=== PATIENT | female | born 1990 | race Caucasian/White ===

== ENCOUNTER 2019-08-26 16:10 | Outpatient (CLI) | payer MEDICAID, SELFPAY ==
[2019-08-26 17:42] LABS: Iron 24 ug/dL (37-145)
[2019-08-26 18:05] LABS: Alanine Aminotransferase 17 U/L (0-33); Albumin Level 4.5 g/dL (3.5-5.2); Alkaline Phosphatase 83 IU/L (35-105); Aspartate Amino Transferase 20 U/L (0-32); Blood Urea Nitrogen 8 mg/dL (6-20); Calcium 9.9 mg/dL (8.5-10.5); Carbon Dioxide 26 mmol/L (22-29); Chloride 102 mmol/L (98-107); Ferritin 5 ng/mL (15-150); Globulin 3.3 g/dL (1.3-4.6); Glomerular Filtration Rate 98.9 mL/min (90-130); Glucose 81 mg/dL (65-115); Iron 22 ug/dL (37-145); Magnesium 2.1 mg/dL (1.7-2.3); Osmolality Calculated 283 mOsm/kg (285-295); Percent Saturation 5.5 % (20-50); Phosphorus 4.2 mg/dL (2.5-4.5); Sodium 139 mmol/L (136-145); Total Bilirubin 0.2 mg/dL (0.15-1.2); Total Iron Binding Capacity 399 mcg/dl; Total Protein 7.8 g/dL (6.6-8.7); Unsaturated Iron Binding 377 ug/dL (112-347); Vitamin B12 242 pg/mL (232-1245)
[2019-08-26 20:23] LABS: Estmated Average Glucose 126
[2019-08-26 21:08] LABS: Basophils % 0.6 %; Eosinophils # 0.1 10^3/uL (0.0-0.8); Hematocrit 36.7 % (37.0-47.0); Hemoglobin 10.7 g/dL (11.5-15.3); Lymphocytes # 1.9 10^3/uL (0.8-4.8); Lymphocytes % 31.2 %; Mean Corpuscular HGB Conc 29.2 g/dL (30.0-36.0); Mean Corpuscular Hemoglobin 22.9 pg (28.0-34.0); Mean Corpuscular Volume 78.4 fL (81-99); Mean Platelet Volume 12.5 fL (7.4-10.4); Monocytes # 0.5 10^3/uL (0.2-0.9); Monocytes % 7.6 %; Neutrophils # 3.7 10^3/uL (1.8-7.7); Neutrophils % 59.4 %; Nucleated Red Blood Cells % 0 %; Platelet Count 303 10^3/cmm (130-400); Red Blood Count 4.68 10^6/uL (4.1-5.3); Red Cell Distribution Width 13.5 % (12.1-15.1); White Blood Count 6.2 10^3/uL (4.0-10.0)
[2019-08-26 22:19] LABS: Folate Level 12.6 ng/mL (4.8-37.3)
[2019-08-27 00:36] LABS: Calcium 9.3 mg/dL (8.5-10.5); Parathyroid Hormone 112.5 pg/mL (15-65)
== END 2019-08-26 16:11 | disposition home or self-care (01) ==
LOC: LAB 16:15
PROVIDERS: PCP Internal Medicine; Visit Provider Surgery
DX: E66.9 Obesity, unspecified (principal)
CPT/HCPCS: 80053; 82310; 82607; 82728; 82746; 83036; 83540; 83550; 83735; 83970; 84100; 84443; 85025

== ENCOUNTER → 2019-08-27 12:10 | Outpatient (BNVA) | payer MEDICAID, SELFPAY | PROVIDERS: PCP Internal Medicine; Visit Provider Obstetrics & Gynecology | DX: N92.0 Excessive and frequent menstruation with regular cycle (principal); R35.0 Frequency of micturition | CPT/HCPCS: 80053; 81000; 85027 ==

== ENCOUNTER 2019-09-07 10:27 | Outpatient (CLI) | payer MEDICAID, SELFPAY ==
--- NOTE | 2019-09-07 11:01 | FL_ITS ---
WS: [id number] Upper GI evaluation. HISTORY: Reflux and bloating. Prior history of gastric bypass surgery. Fluoroscopy time: 3.5 minutes. COMPARISON: No similar studies. Patient swallowed the barium mixtures without difficulty. No hernia or reflux was demonstrated during this examination. There are surgical sutures from the patient's gastric bypass surgery. Small gastri c pouch is evident. The blind-ending jejunal stump is dilated but no extravasation of contrast. Bariu m enters the Lidia limb which is normal caliber. Several small bowel loops proximally were dilated but there is normal peristalsis and no obstruction was evident. FL/FL upper GI w air* [id number] IMPRESSION: 1. Prior gastric bypass surgery. 2. No evidence for gastroesophageal reflux. 3. Proximal small bowel loops distal to the Lidia limb are mildly dilated but t here is no evidence for an obstruction on this examination.
== END 2019-09-07 10:28 | disposition home or self-care (01) ==
LOC: RAD 10:31
PROVIDERS: PCP Internal Medicine; Visit Provider Surgery
DX: K21.9 Gastro-esophageal reflux disease without esophagitis (principal); Z98.84 Bariatric surgery status
CPT/HCPCS: 74246

== ENCOUNTER → 2019-09-14 09:41 | Outpatient (BNVA) | payer MEDICAID, SELFPAY | PROVIDERS: PCP Internal Medicine; Visit Provider Obstetrics & Gynecology | DX: N92.0 Excessive and frequent menstruation with regular cycle (principal) | CPT/HCPCS: 76830 ==

== ENCOUNTER 2019-09-21 13:04 | Outpatient (CLI) | payer MEDICAID, SELFPAY ==
--- NOTE | 2019-09-21 13:30 | US_ITS ---
WS: [id number] THYROID ULTRASOUND HISTORY: HYPERPARATHYROIDISM COMPARISON: None available. Right lobe: 4.6 cm x 1.7 cm x 1.6 cm. Volume: 6.3 cm3. Normal size and echotexture. No significant are dominant nodules are present. Left lobe: 4.8 cm x 1.9 cm x 1.2 cm. Volume: 6.1 cm3. Normal size and echotexture. No significant or dominant nodules are present. Isthmus: 0.3 cm. No parathyroids identified. US/US soft tissue head neck [id number] IMPRESSION: Normal thyroid ultrasound.
== END 2019-09-21 13:05 | disposition home or self-care (01) ==
PROVIDERS: PCP Internal Medicine; Visit Provider Surgery
DX: E21.3 Hyperparathyroidism, unspecified (principal)
CPT/HCPCS: 76536

== ENCOUNTER → 2019-10-07 09:55 | Outpatient (BNVA) | payer MEDICAID, SELFPAY | PROVIDERS: PCP Internal Medicine; Visit Provider Obstetrics & Gynecology | DX: Z12.4 Encounter for screening for malignant neoplasm of cervix (principal) | CPT/HCPCS: 88175 ==

== ENCOUNTER 2019-10-13 07:24 | Day surgery (SDC) | payer MEDICAID, SELFPAY ==
[2019-10-11 11:08] VITALS: BMI 36.6
[2019-10-13 07:42] LABS: OR HCG Qualitative Urine Negative (Negative)
[2019-10-13 07:44] VITALS: BP 131/85; PULSE 70; RESP 16; TEMP 36.9; O2SAT 98
[2019-10-13] MEDS: sodium chloride 0.9% 1,000 ML 30 ML IV (07:56)
--- NOTE | 2019-10-13 08:53 | P.ANESASSM_ITS ---
Pre-Anesthetic Assessment Pre-Anesthetic Assessment: Height/Weight: Height 1.65 m Weight 99.79 kg Temp Pulse Resp BP Pulse Ox 98.5 F 70 16 131/85 98 10/13/19 07:44 10/13/19 07:44 10/13/19 07:44 10/13/19 07:44 10/13/19 07:44 Preop Diagnosis: Anemia Proposed Procedure: Operation Date: 10/13/19 09:00 Proposed Procedures p EGD 23903 [id number] D50.9 R10.9(Not Applicable) - Beto Meier MD s Colonoscopy(Not Applicable) - Beto Meier MD Was Beta Valerie taken within 24 hours: N/A Last intake: Intake Last Liquid Date 10/12/19 Last Liquid Time 20:30 Last Solid Date 10/11/19 Last Solid Time 18:00 Social: Social History: No alcohol and No tobacco Exam: Pre-Anes Outpt Exam: alert, oriented x 3, clear to auscultation bilaterally and regular rate & rhythm Airway: Submandibular: WNL Cervical ROM: WNL MP: 2 History/ROS: No significant history except as noted Pulmonary: Pulmonary: None reported CV/HEM: CV/HEM: None reported : : None reported Hepatic: Hepatic: None reported GI: GI: None reported Metabolic: Metabolic: Thyroid Musc/skel: Musc/skel: None reported Neuropsych: Neuropsych: None reported Anesthetic Plan: ASA status: 2 Anesthesia: MAC Meds/Allergies Current Medications: Current Medications Generic Name Dose Route Start Last Admin Trade Name Freq PRN Reason Stop Dose Admin Sodium Chloride 1,000 mls @ 30 ml s/hr 10/13/19 07:45 10/13/19 07:56 Sodium Chloride 0.9% IV 10/14/19 07:44 30 mls/hr .Q24H RUY Administration PFSH Anesthesia PFSH: Medical History Anemia Depression History of herpes simplex infection 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 Patient has lost >100 pounds. In 2014, found to have iron deficiency, and multiple vitamin and other minimal deficiencies. Hypothyroidism (~2009) Diag in 2009. On replacement. Obesity Surgical History History of appendectomy (~2014) Open. Performed at [facility] in [place], [place] History of section (06/16/09) Dx: Breech. Performed by Dr. Jenkins at [facility] [place] [place] in [place], [place] History of section (10/10/14) Repeat. Performed by Dr. Hayes at [facility] [place] [place] in [place], [place] History of section (12/16/17) Repeat with tubal ligation. Performed in [place], [place] History of esophagogastroduodenoscopy (EGD) History of laparoscopic cholecystectomy (~2012) Laparoscopic procedure performed in [place], [place] History of Lidia-en-Y gastric bypass (06/01/12) Lidia-en-Y type gastric bypass performed laparoscopically. Performed in [facility] History of tubal ligation (12/16/17) Performed at time of . Patient reports having Filshie clips placed. Performed in [place], [place] Family History Mother Hypercholesteremia Unknown Diabetes in general maternal and paternal side Heart disease maternal side Family/Other Thyroid disease maternal aunt Father Thyroid disease Social History (Updated 10/09/19 @ 19:35 by Maykel Hayes MD) Smoking and tobacco status: former smoker Quit status (tobacco): has quit using tobacco Former quit date comment: Smoked as a teenager. Alcohol intake: never Ludmila/Pentecostal: Hoahaoism Data Anesthesia Other Labs: Laboratory Results - last 48 hr 10/13/19 07:40 Urine HCG, Qual Negative Cardiac Studies: No Data to Display
--- NOTE | 2019-10-13 09:01 | W.PM.OPSUD ---
Surgery/Procedure H&P Update DATE OF PROCEDURE: October 13, 2019 DATE H&P PERFORMED: 09/30/19 H&P UPDATE INFORMATION: I have reviewed H&P completed within last 30 days, I have examined patient prior to procedure and No changes to prior documentation PREOP DIAGNOSIS: Anemia PRIMARY INDICATION FOR PROCEDURE: The same PLANNED PROCEDURE: Operation Date: 10/13/19 09:00 Proposed Procedures p EGD [id number] D50.9 R10.9(Not Applicable) - Beto Meier MD s Colonoscopy(Not Applicable) - Beto Meier MD
[2019-10-13 09:25] VITALS: BP 105/65; PULSE 68; RESP 16; TEMP 36.3; O2SAT 98
[2019-10-13 09:39] VITALS: BP 109/63; PULSE 55; RESP 18; O2SAT 99
--- NOTE | 2019-10-13 09:48 | ANE.PACU2 ---
Inpatient post-anesthesia follow up: Airway intact: Yes Vital signs: Temperature 97.4 F Pulse Rate 55 Respiratory Rate 18 Blood Pressure 109/63 Pulse Oximetry 99 Oxygen Delivery Me thod Room Air Oxygen Flow Rate 3.0 Fraction of Inspir ed Oxygen Hydration adequate: Yes Nausea and vomiting: No Mental status: Baseline
== END 2019-10-13 09:55 | disposition home or self-care (01) ==
PROVIDERS: Anesthesiology; PCP Internal Medicine; Visit Provider Surgery
PROC: 0DJ08ZZ Inspection of Upper Intestinal Tract, Via Natural or Artificial Opening Endoscopic (ICD-10-PCS; CPT 43235; principal; 2019-10-13 09:00)
PROC: 0DJD8ZZ Inspection of Lower Intestinal Tract, Via Natural or Artificial Opening Endoscopic (ICD-10-PCS; CPT 45378; 2019-10-13 09:00)
DX: D50.9 Iron deficiency anemia, unspecified (principal); K22.9 Disease of esophagus, unspecified; Z87.891 Personal history of nicotine dependence
CPT/HCPCS: 12345; 43235; 45378; 81025; 84703; 87624; J2704; J3010; J7030

== ENCOUNTER → 2020-01-11 11:37 | Outpatient (BNVA) | payer MEDICAID, SELFPAY | PROVIDERS: PCP Internal Medicine; Visit Provider Dermatology | DX: D48.9 Neoplasm of uncertain behavior, unspecified (principal) | CPT/HCPCS: 88304 ==

== ENCOUNTER 2020-08-01 13:00 | Outpatient (CLI) | payer MEDICAID, SELFPAY | END 2020-08-01 13:01 | disposition home or self-care (01) | LOC: SLEEP 08-02 09:51 | PROVIDERS: PCP Internal Medicine; Visit Provider Internal Medicine | DX: G47.10 Hypersomnia, unspecified (principal) | CPT/HCPCS: G0399 ==

== ENCOUNTER 2020-09-01 11:46 | Emergency (ER) | payer MEDICAID, SELFPAY ==
[2020-09-01 11:50] VITALS: BP 153/117; PULSE 128; RESP 19; TEMP 36.6; O2SAT 100; BMI 36.6
--- NOTE | 2020-09-01 12:06 | W.ED.ALLEREA ---
HPI - Allergic Reaction General: Chief complaint: Allergic Reaction Stated complaint: rash Time Seen by Provider: 09/01/20 11:47 History of Present Illness: HPI narrative: 29-year-old female presents to the emergency room with complaint of an insect bite. She was bitten recently has some swelling and inflammation overlying the right trapezius muscle with some erythema surrounding it is become tender. She is not had any fever sweats or chills. Onset (ago): day(s) Exposure: insect bite Associated symptoms: Deny abdominal pain, difficulty breathing, dysphagia, dizziness, facial swelling, hoarseness, itching, lip swelling, nausea, rash, tongue swelling or vomiting Severity: mild Previous Allergic Reaction History: none Review of Systems Const: Denies: fever(s), chills, body aches, change in appetite, fatigue or malaise ENMT: Denies: hoarseness Card: Denies: chest pain, edema, dyspnea on exertion or orthopnea Resp: Denies: dyspnea, productive cough or non-productive cough GI: Denies: abdominal pain, nausea, vomiting or dysphagia Skin/Breast: Reports: rash Neuro: Denies: dizziness All/Imm: Denies: tongue swelling or facial swelling PFSH ED PFSH: Medical History (Updated 09/01/20 @ 12:08 by Eder Bauman DO) Anemia Depression History of herpes simplex infection 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 Patient has lost >100 pounds. In 2014, found to have iron deficiency, and multiple vitamin and other minimal deficiencies. Hypothyroidism (~2009) Diag in 2009. On replacement. Obesity Surgical History History of appendectomy (~2014) Open. Performed at [facility] in [place], [place] History of section (06/16/09) Dx: Breech. Performed by Dr. Jenkins at [facility] [place] in [place], [place] History of section (10/10/14) Repeat. Performed by Dr. Hayes at [facility] [place] in [place], [place] History of section (12/16/17) Repeat with tubal ligation. Performed in [facility] [place] History of esophagogastroduodenoscopy (EGD) History of laparoscopic cholecystectomy (~2012) Laparoscopic procedure performed in [place], [place] History of Lidia-en-Y gastric bypass (06/01/12) Lidia-en-Y type gastric bypass performed laparoscopically. Performed in [facility] History of tubal ligation (12/16/17) Performed at time of . Patient reports having Filshie clips placed. Performed in [place], [place] Family History Mother Hypercholesteremia Unknown Diabetes in general maternal and paternal side Heart disease maternal side Family/Other Thyroid disease maternal aunt Father Thyroid disease Social History Smoking and tobacco status: former smoker Quit status (tobacco): has quit using tobacco Former quit date comment: Smoked as a teenager. Alcohol intake: never Ludmila/Advent: Pentecostal Physical Exam Const: COMMON NORMALS: no acute distress GENERAL APPEARANCE: cooperative and comfortable ORIENTATION/CONSCIOUSNESS: Yes awake, Yes oriented to person, Yes oriented to place and Yes oriented to time HENMT: COMMON NORMALS: normocephalic, atraumatic, hearing grossly normal bilaterally and external ears normal HEAD & SCALP: normocephalic and atraumatic EXTERNAL EAR: Yes external ears normal Neck/C-Spine: COMMON NORMALS: no JVD Resp: COMMON NORMALS: normal respiratory effort, No retractions, No use of accessory muscles and clear to auscultation bilaterally AUSCULTATION: clear to auscultation bilaterally Cardio: COMMON NORMALS: no JVD, regular rate, regular rhythm and No murmurs present (Cardio) RATE: regular rate RHYTHM: regular rhythm GI: COMMON NORMALS: Soft to palpation and No hepatosplenomegaly present AUSCULTATION: Yes normoactive bowel sounds PALPATION: Yes Soft to palpation, No Tenderness to palpation present (GI), No Guarding due to palpation present (GI) and Yes No hepatosplenomegaly present Neuro: SENSORIUM/ORIENTATION: Yes oriented to person, Yes oriented to place and Yes oriented to time Skin: NARRATIVE SKIN EXAM: Mild localized erythema. There is no evidence of abscess there is a small area at the center that is whitish with palpation was unable really to express any fluid from it. There is no palpable abscess I believe that in anesthetizing locally would not really help her cause her undue discomfort. Course Vital Signs: Vital signs: Vital Signs Temperature 97.8 F 09/01/20 11:50 Pulse Rate 128 H 09/01/20 11:50 Respiratory Rate 19 H 09/01/20 11:50 Blood Pressure 153/117 09/01/20 11:50 Pulse Oximetry 100 09/01/20 11:50 MDM - Allergic Reaction MDM Narrative: Medical decision making narrative: Discharge home on Bactrim and diclofenac can use topical Benadryl over the area for localized relief follow-up with your primary care doctor in the next few days. If worsens return Discharge Plan Discharge Patient Disposition: Home Clinical Impression: Insect bite, Cellulitis Condition: Stable Prescriptions: New Bactrim DS 800-160 mg tablet 1 tab PO BID Qty: 14 RF: 0 diclofenac sodium 75 mg tablet,delayed release (DR/EC) 75 mg PO Q12H PRN (Reason: pain) Qty: 20 RF: 0 No Action mecobalamin (vitamin B12) 10,000 mcg recon soln 10,000 mcg IM .monthly RF: 0 cholecalciferol (vitamin D3) 1,250 mcg (50,000 unit) capsule 50,000 unit PO .weekly RF: 0 ferrous sulfate [Feosol] 325 mg (65 mg iron) tablet 325 mg PO DAILY RF: 0 citalopram 20 mg tablet 20 mg PO DAILY RF: 0 Discharge Orders: Discharge ED (Routine); Ordered 09/01/20 Ordered By: Eder Bauman Referrals: Lizzy Manning MD [Primary Care Provider] - Discharge Diet: Usual diet Discharge Activity: Increase activity as tolerated Patient Instructions: Opioid Safety Activity Restrictions/Additional Instructions: Follow-up with your primary care doctor early next week. Coding Level of Care Code ED [employer] Sales Consultant for Celestina Garg
== END 2020-09-01 12:16 | disposition home or self-care (01) ==
LOC: ER 12:14
PROVIDERS: Emergency Provider Family Medicine; PCP Internal Medicine
DX: S20.461A Insect bite (nonvenomous) of right back wall of thorax, initial encounter (principal); L03.312 Cellulitis of back [any part except buttock and flank]; W57.XXXA Bitten or stung by nonvenomous insect and other nonvenomous arthropods, initial encounter; Z87.891 Personal history of nicotine dependence
CPT/HCPCS: 99282

== ENCOUNTER 2021-10-09 09:12 | Outpatient (CLI) | payer MEDICAID, SELFPAY ==
--- NOTE | 2021-10-09 09:19 | NM_ITS ---
WS: [id number] NUCLEAR MEDICINE PARATHYROID SCINTIGRAPHY INDICATION: Hypercalcemia TECHNIQUE: Parathyroid scintigraphy with 18.2 mCi technetium 99m sestamibi. Early and late anterior p lanar imaging and oblique imaging with and without suprasternal notch and chin markers. FINDINGS: Comparison ultrasound thyroid September 21, 2019. Homogeneous bilateral thyroid uptake. Normal s ubmandibular and parotid activity. Normal thyroid washout on the delayed imaging. No retained areas o f activity. No evidence of parathyroid adenoma. NM/NM parathyroid [id number] IMPRESSION: No evidence of parathyroid adenoma
== END 2021-10-09 09:13 | disposition home or self-care (01) ==
LOC: RAD 09:13
PROVIDERS: PCP Internal Medicine; Visit Provider Internal Medicine
DX: E21.3 Hyperparathyroidism, unspecified (principal)
CPT/HCPCS: 78070; A9500

== ENCOUNTER → 2022-03-01 09:00 | Outpatient (BNVA) | payer MEDICAID, SELFPAY | PROVIDERS: PCP Internal Medicine; Visit Provider Nurse Practitioner Women's Health | DX: R10.2 Pelvic and perineal pain (principal); N92.0 Excessive and frequent menstruation with regular cycle; R82.90 Unspecified abnormal findings in urine; Z34.90 Encounter for supervision of normal pregnancy, unspecified, unspecified trimester | CPT/HCPCS: 84315; 84443; 85025; 87086; 87481; 87491; 87512; 87591; 87661; 87799 ==

== ENCOUNTER → 2022-04-02 14:36 | Outpatient (BNVA) | payer MEDICAID, SELFPAY | PROVIDERS: PCP Internal Medicine; Visit Provider Nurse Practitioner Women's Health | DX: N93.9 Abnormal uterine and vaginal bleeding, unspecified (principal) | CPT/HCPCS: 76830 ==

== ENCOUNTER → 2022-04-16 13:19 | Outpatient (BNVA) | payer MEDICAID, SELFPAY | PROVIDERS: PCP Internal Medicine; Visit Provider Nurse Practitioner Family | DX: E53.8 Deficiency of other specified B group vitamins (principal); Z98.84 Bariatric surgery status; D64.9 Anemia, unspecified; E66.01 Morbid (severe) obesity due to excess calories; E55.9 Vitamin D deficiency, unspecified | CPT/HCPCS: 80053; 80061; 82306; 82607; 83540; 83550 ==

== ENCOUNTER → 2022-08-20 10:08 | Outpatient (BNVA) | payer MEDICAID, SELFPAY | PROVIDERS: PCP Internal Medicine; Visit Provider Nurse Practitioner Family | DX: E66.9 Obesity, unspecified (principal); E03.9 Hypothyroidism, unspecified; F32.9 Major depressive disorder, single episode, unspecified; D64.9 Anemia, unspecified; Z98.84 Bariatric surgery status | CPT/HCPCS: 80053; 80061; 82310; 83970; 84443 ==

== ENCOUNTER 2023-01-23 13:37 | Outpatient (CLI) | payer MEDICAID, SELFPAY ==
--- NOTE | 2023-01-23 14:02 | XR_ITS ---
WS: [id number] Exam: XR hip RT 2-3V wo/w pel* [id number] Date/Time of Exam: 01/23/2023 2:02 PM Reason For Exam: Right sciatica Findings: No fractures or bone anomalies are noted. No unusual soft tissue masses or calcifications are seen. The bony elements of the hip are in adequate alignment. IMPRESSION: Negative RIGHT hip. Tonnis classification: 0
--- NOTE | 2023-01-23 14:02 | XR_ITS ---
WS: [id number] Exam: XR lumbar spine 2-3V* [id number] Date/Time of Exam: 01/23/2023 2:02 PM Reason For Exam: Right sciatica No fracture or dislocation. Degenerative thinning of the L5-S1 disc. Remaining disc are well-maintain ed. Posterior elements appear normal. IMPRESSION: 1. Degenerative narrowing of the L5-S1 disc otherwise negative lumbar spine study.
== END 2023-01-23 13:38 | disposition home or self-care (01) ==
PROVIDERS: PCP Internal Medicine; Visit Provider Nurse Practitioner Family
DX: M54.31 Sciatica, right side (principal); M51.37 Other intervertebral disc degeneration, lumbosacral region
CPT/HCPCS: 72100; 73502

== ENCOUNTER 2023-04-08 12:35 | Outpatient (CLI) | payer MEDICAID, SELFPAY ==
--- NOTE | 2023-04-08 12:46 | MR_ITS ---
WS: [id number] MRI LUMBAR SPINE NONCONTRAST HISTORY: DDD,LUMBOSACRALSPNE W/RADICULOPATHY/CHRONIC BACK PAIN COMPARISON: None available. TECHNIQUE: Sagittal and axial multisequence imaging is submitted. Normal lumbar alignment with no compression fractures or marrow edema. Mild disc space narrowing and desiccation at L5-S1. Conus terminates normally at L1-2 disc level. L1-L2: Normal. L2-L3: LEFT facet arthritis. No stenosis. L3-L4: Mild annular disc bulging with mild ligamentum flavum and facet arthritis. No high-grade steno sis. L4-L5: Mild annular disc bulging. Moderate ligamentum flavum and facet arthritis. There is encroachme nt and narrowing of the central thecal sac. Moderate central, bilateral subarticular recess and mild foraminal stenosis. There is disc contacting the L4 and L5 nerve roots. L5-S1: Large central disc protrusion contacts the S1 nerve roots bilaterally and deforms the thecal s ac. There is an additional soft tissue nodular component centrally abutting the nerve roots and displ acing the thecal sac. Similar signal on some of the sequences to the disc protrusion. This is displac ing and interspersed with the nerve roots. Paravertebral soft tissues are normal. IMPRESSION: 1. Large central disc protrusion at L5-S1 contacting the S1 nerve roots bilaterally and displacing t he thecal sac. There is an additional separate nodular component extending posterior to S1. This may be a separate disc extrusion or focal enlargement of the nerve roots. Nerve sheath tumor not complete ly excluded. Consider follow-up MRI lumbar spine with contrast at this time. 2. L4-5: Moderate central and bilateral subarticular recess and mild foraminal stenosis.
== END 2023-04-08 12:36 | disposition home or self-care (01) ==
LOC: RAD 12:36
PROVIDERS: PCP Internal Medicine; Visit Provider Internal Medicine
DX: M51.17 Intervertebral disc disorders with radiculopathy, lumbosacral region (principal); M48.061 Spinal stenosis, lumbar region without neurogenic claudication
CPT/HCPCS: 72148

== ENCOUNTER 2023-04-22 08:24 | Outpatient (RCR) | payer MEDICAID, SELFPAY | END 2023-04-30 23:59 | disposition home or self-care (01) | LOC: SPT 08:24 | PROVIDERS: PCP Internal Medicine; Visit Provider Internal Medicine | DX: M54.9 Dorsalgia, unspecified (principal); G89.29 Other chronic pain | CPT/HCPCS: 97161 ==

== ENCOUNTER 2023-05-08 12:50 | Outpatient (CLI) | payer MEDICAID, SELFPAY ==
--- NOTE | 2023-05-08 12:54 | MR_ITS ---
WS: [id number] MRI LUMBAR SPINE PRE AND POST CONTRAST HISTORY: DEGENERATIVE DISC DZ/LUMBOSACRAL SPINE W/RADICULOPATHY COMPARISON: 04/08/2023 TECHNIQUE: Sagittal and axial multisequence imaging is submitted. Postcontrast imaging MultiHance 20 cc. Normal lumbar alignment with no compression fractures or marrow edema. Disc base narrowing and mild desiccation throughout the lumbar spine. More significant desiccation at L5-S1. Conus terminates normally at L1-2 disc level. L1-L2: Normal. L2-L3: Mild bilateral facet arthritis. No stenosis. L3-L4: Mild disc bulging and mild facet arthritis. No stenosis. L4-L5: Mild annular disc bulging with ligamentum flavum and facet arthritis. Moderate central and jennifer ateral subarticular recess and mild foraminal stenosis. Very minimal disc contact on the L4 and L5 th rough nerve roots. No interval change since the prior study. L5-S1: There is a large central disc extrusion causing significant mass effect upon the nerve roots i n the thecal sac. This is a lobulated mass extending over a length of 2.1 cm and transversely by 1.1 cm. There is a lobular configuration with a smaller component extending to the LEFT inferiorly. There is enhancement in the more lobulated smaller component but not typical for a nerve root sheath tumor . This is probably a cluster of nerve roots with neuritis and inflammation. This is contiguous with t he larger disc protrusion. Mild peripheral enhancement around the larger disc protrusion. No discitis or osteomyelitis. LEFT renal cyst. IMPRESSION: 1. Reidentified is a large lobulated disc protrusion at L5-S1 with significant contact on the thecal sac and nerve roots. The adjacent nodular component inseparable from the large apparent disc does en nicolas but not a typical enhancement pattern for nerve sheath tumor. I suspect this is a cluster of ne rve roots with acute neuritis and inflammation. 2. L4-5: Moderate central and bilateral subarticular recess and mild foraminal stenosis is unchanged .
[2023-05-08] MEDS: gadobenate dimeglumine 20 mL vial IV (13:30)
== END 2023-05-08 12:51 | disposition home or self-care (01) ==
LOC: RAD 12:50
PROVIDERS: PCP Internal Medicine; Visit Provider Internal Medicine
DX: M51.17 Intervertebral disc disorders with radiculopathy, lumbosacral region (principal); M48.061 Spinal stenosis, lumbar region without neurogenic claudication
CPT/HCPCS: 72158; A9577

== ENCOUNTER → 2023-05-13 14:09 | Outpatient (BNVA) | payer MEDICAID, SELFPAY | PROVIDERS: PCP Internal Medicine; Referring Provider Internal Medicine; Visit Provider Orthopaedic Surgery | DX: M48.062 Spinal stenosis, lumbar region with neurogenic claudication; M51.17 Intervertebral disc disorders with radiculopathy, lumbosacral region | CPT/HCPCS: 72110; 80053; 81001; 85025 ==

== ENCOUNTER 2023-05-19 11:56 | Day surgery (SDC) | payer MEDICAID, SELFPAY ==
[2023-05-19] VITALS (10 sets, daily range): BP systolic 110–134; BP diastolic 76–99; PULSE 70–94; RESP 10–19; TEMP 36.5–37; O2SAT 96–100; BMI 36.6
--- NOTE | 2023-05-19 | XR_ITS ---
WS: [id number] INTRAOPERATIVE TECHNIQUE: 1 Spot fluoroscopic images for intraoperative purposes. FLUOROSCOPY TIME: ? seconds CLINICAL INFORMATION: MAGGI PICS COMPARISON: None. FINDINGS: Localization marker projected over the L5-S1 interspace IMPRESSION: Images obtained for intraoperative purposes.
[2023-05-19] MEDS: sodium chloride 0.9% 1,000 ML 30 ML IV (13:08)
--- NOTE | 2023-05-19 13:17 | P.ANESASSM_ITS ---
Pre-Anesthetic Assessment Height/Weight: Height 1.65 m Weight 99.79 kg Temp Pulse Resp BP Pulse Ox O2 Del Method 98.6 F 70 16 127/99 100 Room Air 05/19/23 12:26 05/19/23 12:26 05/19/23 12:26 05/19/23 12:26 05/19/23 12:05/19/23 12:31 Operation Date: 05/19/23 14:05 Proposed Procedures p Lumbar Spine Decompression/ L5-S1 Laminectomy with partial facetectomies and a discectomy(Not Applicable) - Raz Ro, DO Familial anesthetic complications: None Was Beta Valerie taken within 24 hours: N/A Was Clonidine taken within 24 hours: N/A Last intake: Intake Last Liquid Date 05/18/23 Last Liquid Time 22:00 Last Solid Date 05/18/23 Last Solid Time 22:00 Social No alcohol and No tobacco Exam alert, oriented x 3, clear to auscultation bilaterally and regular rate & rhythm Airway Mallampati: Class II Dentition: chipped and other (missing teeth) Metabolic Morbid Obesity and Thyroid Disease Anesthetic Plan ASA status: 3 Anesthesia: General Risk of > 500 ml blood loss (7ml/kg in children): No Medications/Allergies Home Medications Medication Instructions Recorded Confirmed Last Taken Type levothyroxine 75 mcg capsule 75 mcg PO DAILY 03/01/22 05/16/23 05/19/23 History norethindrone acetate 5 mg tablet See Rx Instructions .Route 01/07/23 05/16/23 05/19/23 Rx .COMPLEX #90 tabs magnesium 250 mg tablet 250 mg PO DAILY 05/16/23 05/16/23 05/18/23 History [id number]-gleevfgb-vycf 45 mg-folic 2 cap PO DAILY 05/16/23 05/16/23 05/18/23 History acid 800 mcg-vit K 120 mcg capsule (Bariatric Multivitamins) Allergies Allergy/AdvReac Type Severity Reaction Status Date / Time No Known Allergies Allergy Verified 05/16/23 09:01 Current Medications Generic Name Dose Route Start Last Admin Trade Name Freq PRN Reason Stop Dose Admin Sodium Chloride 1,000 mls @ 30 mls/hr 05/19/23 12:30 05/19/23 13:08 Sodium Chloride 0.9% IV 05/20/23 12:29 30 mls/hr .Q24H RUY Administration PFSH Anesthesia Medical History No pertinent past medical history neghx: htn,dm,dvt/pe PCP: Dr. 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 Patient has lost >100 pounds. In 2014, found to have iron deficiency, and multiple vitamin and other minimal deficiencies. Hypothyroidism (~2009) Diag in 2009. On replacement. Anemia Obesity Surgical History History of esophagogastroduodenoscopy (EGD) (~09/2019) dr. smith. [facility] [place]. History of colonoscopy with polypectomy (~09/2019) dr. smith. [facility] [place] History of tubal ligation (12/16/17) Performed at time of . Patient reports having Filshie clips placed. Performed in [place], [place] History of appendectomy (~2014) Open. Performed at [facility] in [place], [place] History of section (12/16/17) 3)--Repeat with tubal ligation. Performed in [place], [place] History of section (10/10/14) 2)--Repeat. Performed by Dr. Hayes at [facility] [place] in [place], [place] History of section (06/16/09) 1)--Dx: Breech. Performed by Dr. Jenkins at [facility] [place] in [place], [place] History of Lidia-en-Y gastric bypass (06/01/12) Lidia-en-Y type gastric bypass performed laparoscopically. Performed in [facility] History of laparoscopic cholecystectomy (~2012) Laparoscopic procedure performed in [place], [place] Family History Mother Hypercholesteremia Unknown Diabetes in general maternal and paternal side Heart disease maternal side Family/Other Thyroid disease maternal aunt Father Thyroid disease Denies family history of Hyperlipidemia Breast cancer Hypertension Stroke Social History Substance/Drug Use: never Do you think of yourself as: Straight/Heterosexual Data Anesthesia Cardiac Studies: No Data to Display
--- NOTE | 2023-05-19 13:50 | W.PM.OPSUD ---
Surgery/Procedure H&P Update DATE OF PROCEDURE: May 19, 2023 DATE H&P PERFORMED: 05/13/23 H&P UPDATE INFORMATION: I have reviewed H&P completed within last 30 days, I have examined patient prior to procedure and No changes to prior documentation PLANNED PROCEDURE: Operation Date: 05/19/23 14:05 Proposed Procedures p Lumbar Spine Decompression/ L5-S1 Laminectomy with partial facetectomies and a discectomy(Not Applicable) - Raz Ro, DO
[2023-05-19] MEDS: ceFAZolin 2,000 MG in sodium chloride 0.9% (plus) 50 ML 100 MG IV (16:02)
[2023-05-19] MEDS: lidocaine-epi 1% 20 mL INJ INJECTION (16:27)
--- NOTE | 2023-05-19 17:06 | PM.OP ---
Operative Report Date of procedure: May 19, 2023 Pre-op diagnosis: Lumbar stenosis with neurogenic claudication Post-op diagnosis: same Procedure done: L5-S1 laminectomy with partial facetectomy and discectomy Surgeon: Raz Ro DO Estimated blood loss (mL): 5 Procedure: L5-S1 laminectomy with partial facetectomy and discectomy Patient is brought to the operative suite. After undergoing anesthesia they are placed in the prone position. All areas of impingement are well padded. Patient is then prepped and draped in the normal sterile fashion. A skin incision is made over the L5-S1 level. This is confirmed under c-arm guidance. A series of dilators are passed and the tubular retractor is docked on the L5 lamina. A bovie is used to clear the soft tissue off the lamina and the L 5/S1 facet joint. A high speed jordan is then used to perform the laminectomy and take down the medial aspect of the L 5/S1 facet joint. A kerrison rongeure was then used to take down the remaining lamina and smooth the edge of the laminectomy up to the point where the ligamentum flavum attaches. Attention was then brought to the medial aspect of the facet joint. The remaining medial aspect of the superior and inferior aspect of the facet joint were taken down with the kerrison from the pedicle of L5 to S1. The facet joint had significant hypertrophy. Attention was then brought to the Ligamentum Flavum. The ligament was taken down from the lamina of L5 to S1 and out medially to the remaining facet joint. The ligament was thick. The dura was then exposed. The dura was in good repair. The S1 nerve was retracted the sequestered disc fragment was identified and it was removed in pieces with a micropituitary. The space was irrigated and any loose fragments were removed. The L5 nerve was then traced with a curette out the L5/S1 foramen and found to be adequately decompressed. The S1 nerve was traced with a curette around the S1 pedicle. The lateral recess was opened with a kerrison helping to further decompress the S1 nerve. Wound is then irrigated copiously with saline and surgiflo is used to stop any bleeding. The tubular retractor is removed and the wound is closed with vicryl and monocryl suture. Glue is then used to protect the wound. A sterile dressing is then placed. Patient was then placed in the supine position and transferred to the PACU in stable condition.
[2023-05-19] MEDS: HYDROcodone-acetaminophen 5-325 mg Tablet 1 TAB PO (17:54)
--- NOTE | 2023-05-19 18:50 | ANE.PACU2 ---
Inpatient post-anesthesia follow up: Airway intact: Yes Vital signs: Temperature 98.1 F Pulse Rate 71 Respiratory Rate 16 Blood Pressure 134/82 Pulse Oximetry 99 Oxygen Delivery Me thod Room Air Oxygen Flow Rate Fraction of Inspir ed Oxygen Hydration adequate: Yes Nausea and vomiting: No Pain level: 1 Mental status: Baseline
[2023-05-20 06:33] LABS: OR HCG Qualitative Urine Negative (Negative)
== END 2023-05-19 18:15 | disposition home or self-care (01) ==
PROVIDERS: Anesthesiology; PCP Internal Medicine; Visit Provider Orthopaedic Surgery
PROC: (CPT 63005; principal; 2023-05-19 13:55)
DX: M48.062 Spinal stenosis, lumbar region with neurogenic claudication (principal); E66.01 Morbid (severe) obesity due to excess calories; Z68.36 Body mass index [BMI] 36.0-36.9, adult
CPT/HCPCS: 63047; 72020; 76000; 84703; J0690; J2250; J2704; J3010; J3490; J7030

== ENCOUNTER 2024-02-13 19:51 | Emergency (ER) | payer MEDICAID, SELFPAY ==
[2024-02-13 20:08] VITALS: BP 147/94; PULSE 89; RESP 17; TEMP 37.1; O2SAT 98; BMI 34.9
--- NOTE | 2024-02-13 20:23 | XRR_ITS ---
PROCEDURE INFORMATION: Exam: XR Chest Exam date and time: 02/13/2024 8:37 PM Age: 33 years old Clinical indication: Cough; Patient HX: Epigastric pain; Additional info: Productive cough TECHNIQUE: Imaging protocol: Radiologic exam of the chest. Views: 1 view. COMPARISON: NM parathyroid [id number] 10/09/2021 9:19 AM FINDINGS: Lungs: Unremarkable. No consolidation. Pleural spaces: Unremarkable. No pleural effusion. No pneumothorax. Heart/Mediastinum: Unremarkable. No cardiomegaly. Bones/joints: Unremarkable. Intraperitoneal space: Left upper quadrant surgical clips. XR/XR chest 1V portable [id number] IMPRESSION: No acute findings.
[2024-02-13 20:43] LABS: Basophils # 0.1 10^3/uL (0.0-0.1); Basophils % 0.8 %; Eosinophils # 0.2 10^3/uL (0.0-0.8); Eosinophils % 3.5 %; Hematocrit 40.6 % (36-47); Lymphocytes # 2.4 10^3/uL (0.8-4.8); Lymphocytes % 36.3 %; Mean Corpuscular Hemoglobin 28.2 pg (27-33); Mean Corpuscular Volume 85.5 fl (85-98); Mean Platelet Volume 9.9 fL (7.4-10.4); Monocytes # 0.4 10^3/uL (0.2-0.9); Monocytes % 6.5 %; Neutrophils # 3.48 10^3/uL (1.8-7.7); Neutrophils % 52.6 %; Nucleated Red Blood Cells % 0 %; Platelet Count 291 10^3/cmm (157-399); Red Blood Count 4.75 10^6/uL (3.85-5.65); Red Cell Distribution Width 11.9 % (12.1-15.1); White Blood Count 6.61 10^3/uL (3.29-11.43)
[2024-02-13 20:59] LABS: Alanine Aminotransferase 23 U/L (0-33); Albumin Level 4.1 g/dL (3.5-5.2); Alkaline Phosphatase 81 U/L (35-105); Anion Gap 17.2 (5-19); Aspartate Amino Transferase 21 U/L (0-32); Blood Urea Nitrogen 15 mg/dL (6-20); Calcium 9.4 mg/dL (8.5-10.5); Carbon Dioxide 22 mmol/L (22-29); Chloride 105 mmol/L (98-107); Creatinine Clr Calc Pharmacy 150.7957; Globulin 3.4 g/dL (1.3-4.6); Glomerular Filtration Rate 114.4 mL/min (90-130); Glucose 100 mg/dL (65-115); Osmolality Calculated 291 mOsm/kg (285-295); Potassium 4.2 mmol/L (3.5-5.1); Sodium 140 mmol/L (136-145); Total Bilirubin 0.3 mg/dL (0.15-1.2); Total Protein 7.5 g/dL (6.6-8.7)
[2024-02-13 21:07] LABS: Covid PCR NEGATIVE (Negative); Influenza A NEGATIVE (Negative); Influenza B NEGATIVE (Negative); Respiratory Syncytial Virus Ce NEGATIVE (Negative)
--- NOTE | 2024-02-13 21:27 | ED_ITS ---
Documented by User: JAVIER Andre 02/13/24 21:29 HPI - URI/Sore Throat 2 General: Chief Complaint: Upper Respiratory Infection Stated Complaint: back and chest pain w/ breathing Time Seen by Provider: 02/13/24 20:19 Source: patient Mode of arrival: ambulatory Limitations: no limitations History of Present Illness: Patient is a 33-year-old female who presents to the emergency department complaining of productive cough for the past week. States initially she was having symptoms in her sinuses, these have since resolved but feels that the infection has lodged in her chest. She is having shortness of breath associated with the productive cough, which is of yellow sputum. States she has had symptoms like this in the past, wants to make sure that she does not have a pneumonia. Vital stable at this time. Has not taken anything for her symptoms. No other symptoms to report at this time. MD elicited complaint: other (Productive cough, shortness of breath) Onset (ago): week(s) Consistency: progressively worsening Description of mucous: yellow Able to tolerate fluids by mouth: Yes Exacerbating factors: nothing Relieving factors: nothing Associated symptoms: Deny abdominal pain, chills, chest pain, diarrhea, ear or mastoid pain, fever(s), headache(s), nausea or vomiting Related Data Home Medications Medication Instructions Recorded Confirmed levothyroxine 75 mcg capsule 75 mcg PO DAILY 03/01/22 08/19/23 magnesium 250 mg tablet 250 mg PO DAILY 05/16/23 08/19/23 [id number] 45 mg-folic 2 cap PO DAILY 05/16/23 08/19/23 acid 800 mcg-vit K 120 mcg capsule (Bariatric Multivitamins) Previous Rx's Medication Instructions Recorded norethindrone acetate 5 mg tablet See Rx Instructions .Route 01/07/23 .COMPLEX #90 tabs hydrocodone 5 mg-acetaminophen 325 1 - 2 tab PO .Q4-6H #40 tabs 05/19/23 mg tablet azithromycin 500 mg tablet 500 mg PO DAILY 5 days #5 tabs 02/13/24 prednisone 20 mg tablet 60 mg (3 x 20 mg) PO ONCE 5 days 02/13/24 #15 tabs Allergies Allergy/AdvReac Type Severity Reaction Status Date / Time No Known Allergies Allergy Verified 02/13/24 20:12 Review of Systems 2 General: Reports: 10 or more systems reviewed and unremarkable except in HPI and below Const: Denies: fever(s), chills or fatigue Eyes: Denies: change in vision ENMT: Denies: throat pain, ear or mastoid pain or nasal discharge Card: Denies: chest pain, palpitations, swelling of feet/ankles or lightheadedness Resp: Reports: dyspnea and productive cough; Denies: wheezing GI: Denies: abdominal pain, nausea, vomiting, diarrhea or constipation : Denies: flank pain, difficulty voiding, dysuria or urinary frequency Musc: Denies: neck pain, back pain or joint pain Skin/Breast: Denies: rash Neuro: Denies: headache(s), numbness in extremities or weakness in extremities PFSH ED 2 PFSH: Medical History No pertinent past medical history neghx: htn,dm,dvt/pe PCP: Dr. 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 Patient has lost >100 pounds. In 2014, found to have iron deficiency, and multiple vitamin and other minimal deficiencies. Hypothyroidism (~2009) Diag in 2009. On replacement. Anemia Obesity Surgical History History of [place]ophagogastroduoden[place] ([place]) (~09/2019[place] [facility] [place]oscopy with polypectomy (~09/2019) [place] [facility] [place] of tubal ligation (12/16/17) Performed at time of . Patient reports having Filshie clips placed. Performed in [place], [place] History of appendectomy (~2014) Open. Performed at [facility] in [place], [place] History of section (12/16/17) 3)--Repeat with tubal ligation. Performed in [place], [place] History of section (10/10/14) 2)--Repeat. Performed by Dr. Hayes at [facility] in [place], [place] History of section (06/16/09) 1)--Dx: Breech. Performed by Dr. Jenkins at [facility] in [place], [place] History of Lidia-en-Y gastric bypass (06/01/12) Lidia-en-Y type gastric bypass performed laparoscopically. Performed in [facility] History of laparoscopic cholecystectomy (~2012) Laparoscopic procedure performed in [place], [place] Family History Mother Hypercholesteremia Unknown Diabetes in general maternal and paternal side Heart disease maternal side Family/Other Thyroid disease maternal aunt Father Thyroid disease Denies family history of Hyperlipidemia Breast cancer Hypertension Stroke Social History Substance/Drug Use: never Do you think of yourself as: Straight/Heterosexual Physical Exam 2 Const: COMMON NORMALS: no acute distress and no limitations GENERAL APPEARANCE: cooperative, comfortable and well developed O RIENTATION/CONSCIOUSNESS: Yes awake HENMT: COMMON NORMALS: normocephalic, atraumatic and hearing grossly normal bilaterally HEAD & SCALP: normocephalic and atraumatic Eye: COMMON NORMALS: Equal, round and reactive pupils present, EOMs intact bilaterally and conjunctivae normal CONJUNCTIVA: Yes conjunctivae normal P UPIL: Yes Equal, round and reactive pupils present Neck/C-Spine: COMMON NORMALS: full ROM, supple and no JVD Resp: COMMON NORMALS: normal respiratory effort, No retractions, No use of accessory muscles and clear to auscultation bilaterally AUSCULTATION: clear to auscultation bilaterally Cardio: COMMON NORMALS: no JVD, regular rate, regular rhythm, No clicks present (Cardio), No murmurs present (Cardio) and No rub (Cardio) RATE: r egular rate RHYTHM: regular rhythm Extremity: COMMON NORMALS: normal to inspection, full ROM and capillary refill normal Psych: COMMON NORMALS: mental status grossly normal and Normal thought process present THOUGHT PROCESS: Normal thought process present Skin: COMMON NORMALS: no rashes or lesions noted GENERAL SKIN EXAM: no rashes or lesions noted Course 2 Vital Signs: Vital signs: Vital Signs Temperature 98.8 F 02/13/24 20:08 Pulse Rate 83 02/13/24 21:31 Respiratory Rate 16 02/13/24 21:31 Blood Pressure 146/100 02/13/24 21:31 Pulse Oximetry 97 02/13/24 21:31 Oxygen Delivery Me thod Room Air 02/13/24 20:08 MDM - URI/Sore Throat Medical Decision Making Patient has had a week of respiratory symptoms, initially they were upper respiratory now they are less respiratory as she is having productive cough. Her chest x-ray was negative for any signs of pneumonia. Her lab work was normal, her COVID flu RSV swab was negative. Likely this is bronchitis versus reactive airways disease, so we will treat with antibiotics and steroids. Will have her follow-up with primary care and return with any new or worsening Lab Data 02/13/24 20:32 02/13/24 20:32 Radiology Impressions Chest X-Ray 02/13/24 20:23 IMPRESSION: No acute findings. Laboratory Results WBC 6.61 10^3/uL (3.29-11.43) 02/13/24 20: RBC 4.75 10^6/uL (3.85-5.65) 02/13/24 20: Hgb 13.40 g/dL (11.27-16.99) 02/13/24 20:32 Hct 40.6 % (36-47) 02/13/24 20:32 MCV 85.5 fl (85-98) 02/13/24 20: MCH 28.2 pg (27-33) 02/13/24 20: MCHC 33.0 g/dL (30-55) 02/13/24 20:32 RDW 11.9 % (12.1-15.1) L 02/13/24 20:32 Plt Count 291 10^3/cmm (157-399) 02/13/24 20:32 MPV 9.9 fL (7.4-10.4) 02/13/24 20:32 Neut % (Auto) 52.6 % 02/13/24 20:32 Lymph % (Auto) 36.3 % 02/13/24 20:32 Page % (Auto) 6.5 % 02/13/24 20: Eos % (Auto) 3.5 % 02/13/24 20:32 Baso % (Auto) 0.8 % 02/13/24 20:32 Neut # (Auto) 3.48 10^3/uL (1.8-7.7) 02/13/24 20: Lymph # (Auto) 2.4 10^3/uL (0.8-4.8) 02/13/24 20:32 Page # (Auto) 0.4 10^3/uL (0.2-0.9) 02/13/24 20:32 Eos # (Auto) 0.2 10^3/uL (0.0-0.8) 02/13/24 20:32 Baso # (Auto) 0.1 10^3/uL (0.0-0.1) 02/13/24 20:32 Nucleated RBC % (auto) 0 % 02/13/24 20:32 Nucleated RBCs # 0.0 /100WBC 02/13/24 20:32 Sodium 140 mmol/L (136-145) 02/13/24 20:32 Potassium 4.2 mmol/L (3.5-5.1) 02/13/24 20:32 Chloride 105 mmol/L (98-107) 02/13/24 20:32 Carbon Dioxide 22 mmol/L (22-29) 02/13/24 20:32 Anion Gap 17.2 (5-19) 02/13/24 20:32 BUN 15 mg/dL (6-20) 02/13/24 20:32 Creatinine 0.6 mg/dL (0.5-0.9) 02/13/24 20:32 GFR Calculation 114.4 mL/min (90-130) 02/13/24 20:32 Glucose 100 mg/dL (65-115) 02/13/24 20:32 Calculated Osmolality 291 mOsm/kg (285-295) 02/13/24 20:32 Calcium 9.4 mg/dL (8.5-10.5) 02/13/24 20:32 Total Bilirubin 0.3 mg/dL (0.15-1.2) 02/13/24 20:32 AST 21 U/L (0-32) 02/13/24 20:32 ALT 23 U/L (0-33) 02/13/24 20:32 Alkaline Phosphatase 81 U/L (35-105) 02/13/24 20:32 Total Protein 7.5 g/dL (6.6-8.7) 02/13/24 20:32 Albumin 4.1 g/dL (3.5-5.2) 02/13/24 20:32 Globulin 3.4 g/dL (1.3-4.6) 02/13/24 20:32 Coronavirus (PCR) Negative (Negative) 02/13/24 20:25 Influenza A (PCR) Negative (Negative) 02/13/24 20:25 Influenza Type B (PCR) Negative (Negative) 02/13/24 20:25 RSV (PCR) Negative (Negative) 02/13/24 20:25 All radiology interpretation(s) finalized by discharge Discharge Plan Discharge Patient Disposition: Home Clinical Impression: Bronchitis Condition: Stable Prescriptions: New prednisone 20 mg tablet 60 mg PO ONCE 5 Days Qty: 15 0RF azithromycin 500 mg tablet 500 mg PO DAILY 5 Days Qty: 5 0RF No Action levothyroxine 75 mcg capsule 75 mcg PO DAILY norethindrone acetate 5 mg tablet See Rx Instructions .ROUTE .COMPLEX Qty: 90 2RF Dose Instruction: TAKE 1 TABLET BY MOUTH EVERY DAY Rx Instructions: TAKE 1 TABLET BY MOUTH EVERY DAY magnesium 250 mg Tablet 250 mg PO DAILY Bariatric Multivitamins 45 mg iron- 800 mcg-120 mcg Capsule 2 cap PO DAILY hydrocodone-acetaminophen 5-325 mg tablet 1 - 2 tab PO .Q4-6H Qty: 40 0RF Discharge Orders: Discharge ED (Routine); Ordered 02/13/24 Ordered By: Agusto Mak Referrals: Lizzy Manning MD [Primary Care Provider] - Patient Instructions: Acute Bronchitis (ED) Activity Restrictions/Additional Instructions: Take antibiotics and steroids as prescribed. Follow-up with primary care. If you develop any new or worsening symptoms, return for reevaluation. Coding Level of Care Code ED Bobbin Stripper for Chg Fwd Documented by User: Scott Santoyo DO 02/14/24 18:07 HPI - URI/Sore Throat 2 General: Chief Complaint: Upper Respiratory Infection Stated Complaint: back and chest pain w/ breathing Time Seen by Provider: 02/13/24 20:19 Related Data Home Medications Medication Instructions Recorded Confirmed levothyroxine 75 mcg capsule 75 mcg PO DAILY 03/01/22 08/19/23 magnesium 250 mg tablet 250 mg PO DAILY 05/16/23 08/19/23 [id number] 45 mg-folic 2 cap PO DAILY 05/16/23 08/19/23 acid 800 mcg-vit K 120 mcg capsule (Bariatric Multivitamins) Previous Rx's Medication Instructions Recorded norethindrone acetate 5 mg tablet See Rx Instructions .Route 01/07/23 .COMPLEX #90 tabs hydrocodone 5 mg-acetaminophen 325 1 - 2 tab PO .Q4-6H #40 tabs 05/19/23 mg tablet azithromycin 500 mg tablet 500 mg PO DAILY 5 days #5 tabs 02/13/24 prednisone 20 mg tablet 60 mg (3 x 20 mg) PO ONCE 5 days 02/13/24 #15 tabs Allergies Allergy/AdvReac Type Severity Reaction Status Date / Time No Known Allergies Allergy Verified 02/13/24 20:12 PFSH ED 2 PFSH: Medical History No pertinent past medical history neghx: htn,dm,dvt/pe PCP: Dr. 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 Patient has lost >100 pounds. In 2014, found to have iron deficiency, and multiple vitamin and other minimal deficiencies. Hypothyroidism (~2009) Diag in 2009. On replacement. Anemia Obesity Surgical History History of [place]ophagogastroduodenoscopy (EGD) (~09/2019[place] [facility] [place]. [place] of colonoscopy with polypectomy (~09/2019) [place] [facility] [place] of tubal ligation (12/16/17) Performed at time of . Patient reports having Filshie clips placed. Performed in [place], [place] History of appendectomy (~2014) Open. Performed at [facility] in [place], [place] History of section (12/16/17) 3)--Repeat with tubal ligation. Performed in [place], [place] History of section (10/10/14) 2)--Repeat. Performed by Dr. Hayes at [facility] in [place], [place] History of section (06/16/09) 1)--Dx: Breech. Performed by Dr. Jenkins at [facility] in [place], [place] History of Lidia-en-Y gastric bypass (06/01/12) Lidia-en-Y type gastric bypass performed laparoscopically. Performed in [facility] History of laparoscopic cholecystectomy (~2012) Laparoscopic procedure performed in [place], [place] Family History Mother Hypercholesteremia Unknown Diabetes in general maternal and paternal side Heart disease maternal side Family/Other Thyroid disease maternal aunt Father Thyroid disease Denies family history of Hyperlipidemia Breast cancer Hypertension Stroke Social History Substance/Drug Use: never Do you think of yourself as: Straight/Heterosexual Course 2 Vital Signs: Vital signs: Vital Signs Temperature 98.8 F 02/13/24 20:08 Pulse Rate 83 02/13/24 21:31 Respiratory Rate 16 02/13/24 21:31 Blood Pressure 146/100 02/13/24 21:31 Pulse Oximetry 97 02/13/24 21:31 Oxygen Delivery Me thod Room Air 02/13/24 20:08 MDM - URI/Sore Throat Medical Decision Making Patient has had a week of respiratory symptoms, initially they were upper respiratory now they are less respiratory as she is having productive cough. Her chest x-ray was negative for any signs of pneumonia. Her lab work was normal, her COVID flu RSV swab was negative. Likely this is bronchitis versus reactive airways disease, so we will treat with antibiotics and steroids. Will have her follow-up with primary care and return with any new or worsening This patient was originally seen by Mr. Aubree PA-C.? I agree with his history, evaluation, and treatment. Lab Data 02/13/24 20:32 02/13/24 20:32 Radiology Impressions Chest X-Ray 02/13/24 20:23 IMPRESSION: No acute findings. Laboratory Results WBC 6.61 10^3/uL (3.29-11.43) 02/13/24 20:32 RBC 4.75 10^6/uL (3.85-5.65) 02/13/24 20:32 Hgb 13.40 g/dL (11.27-16.99) 02/13/24 20: Hct 40.6 % (36-47) 02/13/24 20: MCV 85.5 fl (85-98) 02/13/24 20: MCH 28.2 pg (27-33) 02/13/24 20: MCHC 33.0 g/dL (30-55) 02/13/24 20: RDW 11.9 % (12.1-15.1) L 02/13/24 20: Plt Count 291 10^3/cmm (157-399) 02/13/24: MPV 9.9 fL (7.4-10.4) 02/13/24: Neut % (Auto) 52.6 % 02/13/24: Lymph % (Auto) 36.3 % 02/13/24: Page % (Auto) 6.5 % 02/13/24: Eos % (Auto) 3.5 % 02/13/24: Baso % (Auto) 0.8 % 02/13/24: Neut # (Auto) 3.48 10^3/uL (1.8-7.7) 02/13/24: Lymph # (Auto) 2.4 10^3/uL (0.8-4.8) 02/13/24: Page # (Auto) 0.4 10^3/uL (0.2-0.9) 02/13/24: Eos # (Auto) 0.2 10^3/uL (0.0-0.8) 02/13/24: Baso # (Auto) 0.1 10^3/uL (0.0-0.1) 02/13/24: Nucleated RBC % (auto) 0 % 02/13/24: Nucleated RBCs # 0.0 /100WBC 02/13/24 20: Sodium 140 mmol/L (136-145) 02/13/24 20: Potassium 4.2 mmol/L (3.5-5.1) 02/13/24: Chloride 105 mmol/L (98-107) 02/13/24 20:32 Carbon Dioxide 22 mmol/L (22-29) 02/13/24 20:32 Anion Gap 17.2 (5-19) 02/13/24 20:32 BUN 15 mg/dL (6-20) 02/13/24 20:32 Creatinine 0.6 mg/dL (0.5-0.9) 02/13/24 20:32 GFR Calculation 114.4 mL/min (90-130) 02/13/24 20:32 Glucose 100 mg/dL (65-115) 02/13/24 20:32 Calculated Osmolality 291 mOsm/kg (285-295) 02/13/24 20:32 Calcium 9.4 mg/dL (8.5-10.5) 02/13/24 20:32 Total Bilirubin 0.3 mg/dL (0.15-1.2) 02/13/24 20:32 AST 21 U/L (0-32) 02/13/24 20:32 ALT 23 U/L (0-33) 02/13/24 20:32 Alkaline Phosphatase 81 U/L (35-105) 02/13/24 20:32 Total Protein 7.5 g/dL (6.6-8.7) 02/13/24 20:32 Albumin 4.1 g/dL (3.5-5.2) 02/13/24 20:32 Globulin 3.4 g/dL (1.3-4.6) 02/13/24 20:32 Coronavirus (PCR) Negative (Negative) 02/13/24 20:25 Influenza A (PCR) Negative (Negative) 02/13/24 20:25 Influenza Type B (PCR) Negative (Negative) 02/13/24 20:25 RSV (PCR) Negative (Negative) 02/13/24 20:25 Discharge Plan Discharge Patient Disposition: Home Clinical Impression: Bronchitis Condition: Stable Prescriptions: New prednisone 20 mg tablet 60 mg PO ONCE 5 Days Qty: 15 0RF azithromycin 500 mg tablet 500 mg PO DAILY 5 Days Qty: 5 0RF No Action levothyroxine 75 mcg capsule 75 mcg PO DAILY norethindrone acetate 5 mg tablet See Rx Instructions .ROUTE .COMPLEX Qty: 90 2RF Dose Instruction: TAKE 1 TABLET BY MOUTH EVERY DAY Rx Instructions: TAKE 1 TABLET BY MOUTH EVERY DAY magnesium 250 mg Tablet 250 mg PO DAILY Bariatric Multivitamins 45 mg iron- 800 mcg-120 mcg Capsule 2 cap PO DAILY hydrocodone-acetaminophen 5-325 mg tablet 1 - 2 tab PO .Q4-6H Qty: 40 0RF Discharge Orders: Discharge ED (Routine); Ordered 02/13/24 Ordered By: Agusto Mak Referrals: Lizzy Manning MD [Primary Care Provider] - Patient Instructions: Acute Bronchitis (ED) Activity Restrictions/Additional Instructions: Take antibiotics and steroids as prescribed. Follow-up with primary care. If you develop any new or worsening symptoms, return for reevaluation. Coding Level of Care Code ED Bobbin Stripper for Celestina Garg
[2024-02-13] MEDS: azithromycin 250 mg Tablet 500 MG PO (21:30)
[2024-02-13 21:31] VITALS: BP 146/100; PULSE 83; RESP 16; O2SAT 97
== END 2024-02-13 21:33 | disposition home or self-care (01) ==
PROVIDERS: Emergency Provider Physician Assistant; PCP Internal Medicine
DX: J40 Bronchitis, not specified as acute or chronic (principal); Z11.52 Encounter for screening for COVID-19
CPT/HCPCS: 0241U; 36415; 71045; 80053; 85025; 99284; Q0144

== ENCOUNTER 2025-01-18 11:00 | Outpatient (CLI) | payer MEDICAID, SELFPAY ==
--- NOTE | 2025-01-18 11:11 | XRR_ITS ---
PROCEDURE INFORMATION: Exam: XR Lumbosacral Spine Exam date and time: 01/18/2025 11:19 AM Age: 34 years old Clinical indication: Low back pain; Prior surgery; Surgery date: 6+ months; Surgery type: Herniated disks lumbar; Chronic lower back pain that has gotten worse x 2 months. HX of herniated disks. ; Additional info: Degenerative disc dz, lumbosacral spine w/radiculopathy TECHNIQUE: Imaging protocol: Radiologic exam of the lumbosacral spine. Views: 4 or 5 views. COMPARISON: OT XR lumbar spine 1V [id number] 05/19/2023 4:29 PM FINDINGS: Bones/joints: Mild scoliosis. Severe L5-S1 degenerative disc disease. 3 mm retrolisthesis of L5 on S1. Otherwise, unremarkable. Soft tissues: Surgical clips Otherwise, unremarkable soft tissues. XR/XR lumbar spine min 4V [id number] IMPRESSION: 1. No acute findings. 2. Additional details as above.
== END 2025-01-18 11:01 | disposition home or self-care (01) ==
PROVIDERS: PCP Internal Medicine; Visit Provider Internal Medicine
DX: M51.17 Intervertebral disc disorders with radiculopathy, lumbosacral region (principal); M41.9 Scoliosis, unspecified; M51.379 Other intervertebral disc degeneration, lumbosacral region without mention of lumbar back pain or lower extremity pain
CPT/HCPCS: 72110